=== PATIENT | male | born 1980 | race Caucasian/White ===

== ENCOUNTER 2016-11-28 21:11 | Emergency (ER) | payer OTHER ==
[~2016-11-28] VITALS: Ht 188 cm; Wt 111.0 kg
[2016-11-28 21:12] VITALS: BP 151/99
[2016-11-28] MEDS ORDERED: DIPH,PERTUSS(ACELL),TET VAC/PF 0.5 ML IM-VACC ONE ×2 (21:51→22:00)
== END 2016-11-28 22:01 | disposition home or self-care (01) ==
LOC: ED 21:45
DX: S51.812A Laceration without foreign body of left forearm, initial encounter (principal); F17.200 Nicotine dependence, unspecified, uncomplicated; W45.8XXA Other foreign body or object entering through skin, initial encounter; Y93.39 Activity, other involving climbing, rappelling and jumping off; Y92.89 Other specified places as the place of occurrence of the external cause; Y99.8 Other external cause status
CPT/HCPCS: 90471; 90715